=== PATIENT | male | born 1980 | race Caucasian/White ===

== ENCOUNTER 2023-03-23 05:58 | Outpatient (CLI) | payer BC ==
[~2023-03-23] VITALS: Ht 177.8 cm; Wt 97.7 kg
== END 2023-03-24 10:09 | disposition home or self-care (01) ==
LOC: EDBD → PREOP 05:58
PROVIDERS: ATTEND Otolaryngology Otolaryngology/Facial Plastic Surgery
DX: Z01.818 Encounter for other preprocedural examination (principal)

== ENCOUNTER 2023-03-30 07:36 | Day surgery (SDC) | payer BC ==
[2023-03-30] VITALS (8 sets, daily range): BP systolic 122–151; BP diastolic 78–95
[~2023-03-30] VITALS: Ht 177 cm; Wt 97.7 kg
[2023-03-30 08:11] LABS: BASOPHILS # (AUTO) 0.1 10^3/uL (0.0-0.1); BASOPHILS % (AUTO) 1 % (0-10); EOSINOPHILS # (AUTO) 0.2 10^3/uL (0.0-0.3); EOSINOPHILS % (AUTO) 4 % (0-10); HEMATOCRIT 49 % (40-54); HEMOGLOBIN 16.3 g/dL (13.3-17.7); LYMPHOCYTES # (AUTO) 1.5 10^3/uL (1.0-4.0); LYMPHOCYTES % (AUTO) 24 % (12-44); MEAN CORPUSCULAR HEMOGLOBIN 30 pg (25-34); MEAN CORPUSCULAR HGB CONC 33 g/dL (32-36); MEAN CORPUSCULAR VOLUME 89 fL (80-99); MEAN PLATELET VOLUME 10.2 fL (9.0-12.2); MONOCYTES # (AUTO) 0.5 10^3/uL (0.0-1.0); MONOCYTES % (AUTO) 8 % (0-12); NEUTROPHILS # (AUTO) 4.1 10^3/uL (1.8-7.8); NEUTROPHILS % (AUTO) 64 % (42-75); PLATELET COUNT 333 10^3/uL (130-400); WHITE BLOOD COUNT 6.5 10^3/uL (4.3-11.0)
[2023-03-30 08:28] LABS: CALCIUM 8.8 MG/DL (8.5-10.1); CREATININE SERUM 0.9 MG/DL (0.60-1.30); POTASSIUM 3.6 MMOL/L (3.6-5.0)
[2023-03-30] MEDS ORDERED: CETI10TA49 PO (08:30)
[2023-03-30] MEDS ORDERED: ALLERGY SHOTS (08:30)
[2023-03-30] MEDS: LACTATED RINGERS 1,000 ML 1,000 ML IV PRN ×2 (08:32→09:37)
[2023-03-30] MEDS ORDERED: COCAINE 4% TOPICAL SOLN 2 ML SYR ONE (08:44)
[2023-03-30] MEDS ORDERED: PHENYLEPHRINE 0.5% (REGULAR) NASAL SPRAY 15 ML ONE (08:44)
[2023-03-30] MEDS ORDERED: BSS 15 ML ONE (08:45)
[2023-03-30] MEDS ORDERED: LIDOCAINE/EPI 1%-1:200,000 (XYLOCAINE) 30 ML VIAL ONE (08:45)
[2023-03-30] MEDS ORDERED: dexAMETHasone INJ 10 MG/ML 1 ML VIAL ONE (08:54)
[2023-03-30] MEDS ORDERED: LIDOCAINE PF 2% 5 ML VIAL ONE (08:54)
[2023-03-30] MEDS ORDERED: fentaNYL INJECTION 100 MCG/2 ML VIAL ONE (08:54)
[2023-03-30] MEDS ORDERED: GLYCOPYRROLATE INJ 0.2 MG/ML 2 ML VIAL ONE (08:54)
[2023-03-30] MEDS ORDERED: proPOfol INJECTION 200 MG/20 ML VIAL IV ONE (08:54)
[2023-03-30] MEDS ORDERED: ROCURONIUM 50 MG/5 ML VIAL IV ONE (08:54)
[2023-03-30] MEDS ORDERED: MIDAZOLAM INJ 2 MG/2 ML VIAL ONE (08:54)
[2023-03-30] MEDS ORDERED: ONDANSETRON INJECTION 4 MG/2 ML (SDV) ONE (08:54)
[2023-03-30] MEDS ORDERED: NEOSTIGMINE 1 MG/1ML 10 ML VIAL ONE (08:55)
--- NOTE | 2023-03-30 09:10 | Progress Note-Pre Operative ---
Pre-Operative Progress Note Date of Available H&P: Mar 30, 2023 Date H&P Reviewed: Mar 30, 2023 Time H&P Reviewed: 08:30 History & Physical: H&P Reviewed, Patient Examed, No changes noted Changes from last HP none Pre-Operative Diagnosis: Deviated Nasal Septum, Bialt Hyepr of INf Turbs BRANDON FISHER MD Mar 30, 2023 09:10
--- NOTE | 2023-03-30 09:11 | Progress Note-Post Operative ---
Post-Operative Progess Note Surgeon (s)/Deli Manager (s) Surgeon BRANDON FISHER MD Deli Manager n/a Pre-Operative Diagnosis Deviated Nasal Septum, Bialt Hyepr of INf Turbs Post-Operative Diagnosis same Post-Op Procedure Note Date of Procedure: Mar 30, 2023 Name of Procedure Performed: Nasal Septoplasty, Bialt Red of Inf Turbs Description & Findings Description and Findings: n/a Anesthesia Type get Estimated Blood Loss minimal Packing none. Specimen(s) collected/removed nasal septum BRANDON FISHER MD Mar 30, 2023 09:11
[2023-03-30] MEDS ORDERED: PROMETHAZINE INJ 25 MG/ML VIAL IVP PRN (09:15)
[2023-03-30] MEDS ORDERED: D5 1/2NS + KCL 20 MEQ/L 1000ML 1,000 ML IV SCH (09:15)
[2023-03-30] MEDS ORDERED: HYDROcodone/ACETAMINOPHEN 5 MG/325 MG TABLET PO PRN (09:15)
[2023-03-30] MEDS ORDERED: LIDOCAINE/EPI 1%-1:200,000 (XYLOCAINE) 30 ML VIAL INJ ONE (09:28)
[2023-03-30] MEDS ORDERED: PHENYLEPHRINE 0.5% (REGULAR) NASAL SPRAY 15 ML NS ONE (09:29)
[2023-03-30] MEDS ORDERED: COCAINE 4% TOPICAL SOLN 2 ML SYR NS ONE (09:30)
[2023-03-30] MEDS ORDERED: SEVOFLURANE (ULTANE) 15 ML INHAL SOLN ONE (09:49)
--- NOTE | 2023-03-30 10:22 | Anesthesia-General Post-Op ---
General Patient Condition Mental Status/LOC: Same as Preop Cardiovascular: Satisfactory Nausea/Vomiting: Absent Respiratory: Satisfactory Pain: Controlled Complications: Absent Post Op Complications Complications None Follow Up Care/Instructions Patient Instructions None needed. Anesthesia/Patient Condition Patient Condition Patient is awake in PACU and doing well, no complaints, stable vital signs, no apparent adverse anesthesia problems. No complications reported per nursing. JASON BREWSTER DO Mar 30, 2023 10:22
[2023-03-30] MEDS ORDERED: HYDROmorphone INJECTION 2 MG/ML VIAL IV ONE (10:30)
[2023-03-30] MEDS ORDERED: ONDANSETRON INJECTION 4 MG/2 ML (SDV) IVP PRN (10:30)
[2023-03-30] MEDS ORDERED: morphine INJ 10 MG/ML 1ML (SYR OR VIAL) IVP ONE (10:30)
[2023-03-30] MEDS ORDERED: ACHD5005 PO (11:15)
[2023-03-30] MEDS ORDERED: AMOX-355 PO (11:15)
== END 2023-03-30 11:35 | disposition home or self-care (01) ==
LOC: SDC 07:36 → EDBD 10:00 → SDC 11:35
PROVIDERS: ATTEND Otolaryngology Otolaryngology/Facial Plastic Surgery
DX: J34.2 Deviated nasal septum (principal); J98.8 Other specified respiratory disorders; J34.3 Hypertrophy of nasal turbinates; J30.1 Allergic rhinitis due to pollen; J30.81 Allergic rhinitis due to animal (cat) (dog) hair and dander; J30.89 Other allergic rhinitis; Z28.310 Unvaccinated for COVID-19
CPT/HCPCS: 36415; 80048; 85025; 87081